=== PATIENT | male | born 1980 | race Caucasian/White ===

== ENCOUNTER → 2018-08-02 | Outpatient (CLI) | payer OTHER | LOC: M.RAD 09:12 | DX: M79.641 Pain in right hand (principal); F41.1 Generalized anxiety disorder; Z88.1 Allergy status to other antibiotic agents ==

== ENCOUNTER → 2021-02-25 | Outpatient (CLI) | payer OTHER | LOC: M.RAD 09:56 | PROVIDERS: ATTEND Internal Medicine | DX: J30.9 Allergic rhinitis, unspecified (principal); D86.9 Sarcoidosis, unspecified ==